=== PATIENT | female | born 1960 | race Caucasian/White ===

== ENCOUNTER → 2017-07-21 | Outpatient (CLI) | payer OTHER ==
[2017-07-21 14:48] VITALS: BP 174/88; PULSE 69; RESP 20; TEMP 98.9; BMI 41.5
--- NOTE | 2017-07-21 15:53 | P.HPOB ---
History of Present Illness H&P Date: 07/21/17 Chief Complaint: Patient is here for her routine gynecologic exam and mammogram. This is a 57-year-old G2 PII within of 2013. The patient states that has been about 3 to 4 years since her last pelvic exam. She is status post tubal ligation. She is without gynecologic complaints and denies any postmenopausal bleeding. Review of Systems She states her weight can fluctuate by about [address] She denies respiratory, cardiac, or G.I. problems. Past Medical History Past Medical History: Asthma, Hypertension Additional Past Medical History / Comment(s): restless leg syndrome History of Any Multi-Drug Resistant Organisms: None Reported Past Surgical History: Orthopedic Surgery (bilateral knee and wrist surgery, shoulder), Tubal Ligation Past Anesthesia/Blood Transfusion Reactions: No Reported Reaction Past Psychological History: No Psychological Hx Reported Smoking Status: Never smoker Past Alcohol Use History: None Reported Past Drug Use History: None Reported Additional History: The patient has been since 2007 and this is her 2nd marriage. She is a embroidery worker. - Past Family History Mother Family Medical History: Cancer (colon) Father Family Medical History: Cancer (Melanoma) Sister(s) Family Medical History: Cancer (Breast) Additional Family Medical History / Comment(s): Another sister had heart disease. Medications and Allergies Home Medications Medication Instructions Recorded Confirmed Type HYDROcodone/APAP 7.5-325MG [[place] 1 tab PO HS 06/11/15 06/11/15 History 7.5-325] Lisinopril-Hctz 20-12.5 mg 1 tab PO DAILY 06/11/15 06/11/15 History [Zestoretic 20-12.5] Cholecalciferol (Vitamin D3) 2,000 unit PO DAILY 07/21/17 07/21/17 History [Vitamin D3] Ibuprofen [Ibuprofen] 1 tab PO TID PRN 07/21/17 07/21/17 History Allergies Allergy/AdvReac Type Severity Reaction Status Date / Time aspirin Allergy Rash/Hives Verified 06/11/15 10:33 Exam - Vital Signs Vital signs: Vital Signs Temp Pulse Resp BP 07/21/17 14:40 98.9 F 69 20 174/88 Intake and Output 07/21/17 07/21/17 07/21/17 06:59 14:59 22:59 Other: Weight 96.615 kg Height 5'0". BMI 41.6. Repeat blood pressure 158/78. This is a well-developed heavyset white female who is alert and oriented times 3 in no acute distress. HEENT: Within normal limits. NECK: Supple without mass or thyromegaly. CHEST AND LUNGS: Clear to auscultation. HEART: Regular rate and rhythm. BREASTS: Are without mass or discharge. AXILLARY EXAM: Negative for adenopathy. BACK: Negative for CVA tenderness. ABDOMEN: Soft, obese, nontender, without palpable masses. PELVIC EXAM: Normal external genitalia with mild atrophy. Cervix and vagina appear normal with mild atrophy. The cervix is somewhat stenotic secondary to atrophy. There is no unusual discharge. There is no evidence of prolapse. The uterus is midposition, nongravid size and nontender. There are no palpable adnexal masses or tenderness. Bimanual examination is somewhat limited secondary to her size. RECTAL EXAM: rectovaginal exam is negative for mass or tenderness and is negative for occult blood. EXTREMITIES: Nontender. IMPRESSION: 1. 57-year-old menopausal female with normal gynecologic exam. 2. Elevated blood pressure with history of hypertension. PLAN: 1. Pap smear was performed. 2. Breast examination was discussed. 3. Screening mammogram will be done today. 4. Osteoporosis prevention was discussed. Bone density screening will be done with the order from Dr. Hedrick. 5. I recommended that she do home blood pressure checks on a regular basis. Should she will follow-up with Dr. Hedrick for elevated blood pressures. 6. She will return in one year.
--- NOTE | 2017-07-22 13:29 | BD ---
EXAMINATION TYPE: MG DEXA axial skeleton. DATE OF EXAM: 07/21/2017 COMPARISON: NONE CLINICAL HISTORY: 57 YR OLD FEMALE: ICD-10 CODE: Z78.0 POST MENOPAUSAL Height: 60 Weight: 208 FRAX RISK QUESTIONS: Alcohol (3 or more units per day): NO Family History (Parent hip fracture): NO Glucocorticoids (More than 3mos): YES (Ex: prednisone, prednisolone, methylprednisolone, dexamethasone, and hydrocortisone). History of Fracture in Adulthood: NO Secondary Osteoporosis: NO 1. Type 1 Diabetes: NO 2. Hyperthyroidism: NO 3. Menopause before 45: NO 4. Malnutrition: NO 5. Chronic liver disease: NO Rheumatoid Arthritis: NO Current Tobacco Use: NO RISK FACTORS HISTORY OF: Active: YES Diet low in dairy products/other sources of calcium: NO Postmenopausal woman: YES AT AGE 52 Hyperparathyroidism: NO Adrenal Insufficiency: NO MEDICATIONS: Prednisone or other steroids: ASTHMA INHALERS STEROIDS FOR ASTHMA How Long: FOR YRS Additional Medications: BP MEDS, SINGULAIR, VIT D Additional History: ASTHMA , EXAM MEASUREMENTS: Bone mineral densitometry was performed using the [employer] System. Bone mineral density as measured about the Lumbar spine is: ----- L1-L4(G/cm2): 1.360 T Score Values are as follows: ----- L1: 1.8 ----- L2: 1.4 ----- L3: 2.3 ----- L4: 0.6 ----- L1-L4: 1.5 Bone mineral density FIRST BONE DENSITY.....BASELINE STUDY Bone mineral density about the R hip (g/cm2): 0.909 Bone mineral density about the L hip (g/cm2): 0.889 T Score values are as follows: -----R Neck: -1.7 -----L Neck: -1.7 -----R Total: -0.8 -----L Total: -0.9 Bone mineral density BASELINE STUDY FRAX%S: THERE IS A 6.2% CHANCE OF A MAJOR OSTEOPOROTIC FX AND A 0.5% FOR HIP FX.....PROBABILITY OF FX IN 10 YRS TIME IMPRESSION: Osteopenia (T Score between -2.5 and -1). There is slightly increased risk of fracture and the patient may be considered for treatment. Re-Screen 2-5 years. NOTE: T-SCORE=SD OF THE YOUNG ADULT MEAN.
--- NOTE | 2017-07-23 08:57 | MM ---
Reason for exam: screening (asymptomatic). Last mammogram was performed 2 years and 1 month ago. History: Patient is postmenopausal. Family history of premenopausal breast cancer in sister and breast cancer in mother. Physical Findings: A clinical breast exam by your physician is recommended on an annual basis and results should be correlated with mammographic findings. MG Screening Mammo w CAD Bilateral CC and MLO view(s) were taken. Prior study comparison: June 06, 2015, bilateral MG screening mammo w CAD. March 30, 2014, bilateral MG screening mammo w CAD. The breast tissue is almost entirely fat. No significant changes when compared with prior studies. ASSESSMENT: Negative, BI-RAD 1 RECOMMENDATION: Routine screening mammogram of both breasts in 1 year.
--- NOTE | 2017-07-28 16:16 | P.PN ---
Progress Note - Text Progress Note Date: 07/28/17 Test results from 07/21/2017 include a negative Pap smear, benign mammogram and a bone density test showing osteopenia. These results were reviewed with the patient over the phone. I have recommended adequate calcium, vitamin D and regular exercise. This was previously discussed with the patient as well. We will plan on repeating the bone density test in 2 to 3 years.
== END | disposition home or self-care (01) ==
LOC: WWCWWP 14:32
PROVIDERS: ATTEND Obstetrics & Gynecology
DX: Z12.31 Encounter for screening mammogram for malignant neoplasm of breast (principal); M85.80 Other specified disorders of bone density and structure, unspecified site; Z78.0 Asymptomatic menopausal state
CPT/HCPCS: 77067; 77080

== ENCOUNTER 2018-08-22 13:33 | Emergency (ER) | payer OTHER ==
[2018-08-22 13:41] VITALS: TEMP 99.9
[2018-08-22] MEDS ORDERED: IPRATROPIUM-ALBUTEROL 3 ML NEB INHALATION STA (14:08)
[2018-08-22] MEDS ORDERED: SODIUM CHLORIDE 0.9% 1,000 ML IV STA (14:08)
--- NOTE | 2018-08-22 14:29 | ED ---
SOB HPI - General Chief Complaint: Shortness of Breath Stated Complaint: Sent from med expressed Time Seen by Provider: 08/22/18 13:46 Source: patient, RN notes reviewed, old records reviewed Mode of arrival: ambulatory Limitations: no limitations - History of Present Illness Initial Comments: 58-year-old female presents emergency department today for evaluation due to cough congestion. She was seen at [facility] and was given a breathing treatment, Tylenol for fever, flu swab which was negative and strep test negative. There is sent over due to an abnormal EKG. They stated the Patient had an enlarged heart and monitored, once. She has no chest pain. She denies lower extremity swelling. Patient has had a history of reactive airway disease. Patient has had no abdominal pain, nausea or vomiting. - Related Data Home Medications Medication Instructions Recorded Confirmed HYDROcodone/APAP 7.5-325MG [[place] 1 tab PO HS 06/11/15 06/11/15 7.5-325] Lisinopril-Hctz 20-12.5 mg 1 tab PO DAILY 06/11/15 06/11/15 [Zestoretic 20-12.5] Cholecalciferol (Vitamin D3) 2,000 unit PO DAILY 07/21/17 07/21/17 [Vitamin D3] Ibuprofen 1 tab PO TID PRN 07/21/17 07/21/17 Previous Rx's Medication Instructions Recorded Azithromycin [Zithromax Z-pack] 250 mg PO DIRECTED #6 tab 08/22/18 Ipratropium-Albuterol Nebulize 3 ml INHALATION QID #30 neb 08/22/18 [Duoneb 0.5 mg-3 mg/3 ml Soln] predniSONE 50 mg PO DAILY #5 tablet 08/22/18 Allergies Allergy/AdvReac Type Severity Reaction Status Date / Time aspirin Allergy Rash/Hives Verified 08/22/18 13:40 Review of Systems ROS Statement: Those systems with pertinent positive or pertinent negative responses have been documented in the HPI. ROS Other: All systems not noted in ROS Statement are negative. Past Medical History Past Medical History: Asthma, Hypertension Additional Past Medical History / Comment(s): restless leg syndrome History of Any Multi-Drug Resistant Organisms: None Reported Past Surgical History: Orthopedic Surgery, Tubal Ligation Additional Past Surgical History / Comment(s): bilateral knee and wrist surgery,shoulder Past Anesthesia/Blood Transfusion Reactions: No Reported Reaction Past Psychological History: No Psychological Hx Reported Smoking Status: Never smoker Past Alcohol Use History: None Reported Past Drug Use History: None Reported - Past Family History Mother Family Medical History: Cancer (colon) Additional Family Medical History / Comment(s): colon Father Family Medical History: Cancer (Melanoma) Additional Family Medical History / Comment(s): melanoma Sister(s) Family Medical History: Cancer (Breast) Additional Family Medical History / Comment(s): Another sister had heart disease. General Exam - General Exam Comments Initial Comments: 58-year-old female. Alert and oriented 3. No significant distress. Limitations: no limitations General appearance: alert, in no apparent distress Head exam: Present: atraumatic, normocephalic, normal inspection Eye exam: Present: normal appearance, PERRL, EOMI. Absent: scleral icterus, conjunctival injection, periorbital swelling ENT exam: Present: normal exam, mucous membranes moist Neck exam: Present: normal inspection Respiratory exam: Present: normal lung sounds bilaterally. Absent: respiratory distress, wheezes, rales, rhonchi, stridor Cardiovascular Exam: Present: regular rate, normal rhythm, normal heart sounds. Absent: systolic murmur, diastolic murmur, rubs, gallop, clicks GI/Abdominal exam: Present: soft, normal bowel sounds. Absent: distended, tenderness, guarding, rebound, rigid Extremities exam: Present: normal inspection, full ROM, normal capillary refill. Absent: tenderness, pedal edema, joint swelling, calf tenderness Back exam: Present: normal inspection Neurological exam: Present: alert, oriented X3, CN II-XII intact Psychiatric exam: Present: normal affect, normal mood Skin exam: Present: warm, dry, intact, normal color. Absent: rash Course Vital Signs 08/22/18 08/22/18 08/22/18 13:37 14:50 14:58 Temperature 99.9 F H Pulse Rate 102 H 100 99 Respiratory 20 Rate Blood Pressure 162/75 O2 Sat by Pulse 97 Oximetry 08/22/18 08/22/18 08/22/18 15:18 15:30 16:00 Temperature Pulse Rate 91 87 92 Respiratory 18 21 22 Rate Blood Pressure 170/80 175/80 158/73 O2 Sat by Pulse 98 96 96 Oximetry Medical Decision Making - Lab Data Result diagrams: 08/22/18 14:45 08/22/18 14:45 Lab Results 08/22/18 08/22/18 08/22/18 Range/Units 14:45 14:45 14:45 WBC 6.1 (3.8-10.6) k/uL RBC 4.35 (3.80-5.40) m/uL Hgb 13.1 (11.4-16.0) gm/dL Hct 39.4 (34.0-46.0) % MCV 90.6 (80.0-100.0) fL MCH 30.2 (25.0-35.0) pg MCHC 33.3 (31.0-37.0) g/dL RDW 14.7 (11.5-15.5) % Plt Count 195 (150-450) k/uL Neutrophils % 89 % Lymphocytes % 7 % Monocytes % 2 % Eosinophils % 1 % Basophils % 0 % Neutrophils # 5.5 (1.3-7.7) k/uL Lymphocytes # 0.4 L (1.0-4.8) k/uL Monocytes # 0.1 (0-1.0) k/uL Eosinophils # 0.1 (0-0.7) k/uL Basophils # 0.0 (0-0.2) k/uL PT (9.0-12.0) sec INR (<1.2) APTT (22.0-30.0) sec Sodium 143 (137-145) mmol/L Potassium 3.9 (3.5-5.1) mmol/L Chloride 108 H (98-107) mmol/L Carbon Dioxide 25 (22-30) mmol/L Anion Gap 10 mmol/L BUN 6 L (7-17) mg/dL Creatinine 0.54 (0.52-1.04) mg/dL Est GFR (CKD-EPI)AfAm >90 (>60 ml/min/1.73 sqM) Est GFR (CKD-EPI)NonAf >90 (>60 ml/min/1.73 sqM) Glucose 123 H (74-99) mg/dL Calcium 9.0 (8.4-10.2) mg/dL Magnesium 2.0 (1.6-2.3) mg/dL Total Bilirubin 0.8 (0.2-1.3) mg/dL AST 27 (14-36) U/L ALT 35 (9-52) U/L Alkaline Phosphatase 80 (38-126) U/L Troponin I (0.000-0.034) ng/mL NT-Pro-B Natriuret Pep 271 pg/mL Total Protein 7.3 (6.3-8.2) g/dL Albumin 4.8 (3.5-5.0) g/dL 08/22/18 08/22/18 Range/Units 14:45 14:45 WBC (3.8-10.6) k/uL RBC (3.80-5.40) m/uL Hgb (11.4-16.0) gm/dL Hct (34.0-46.0) % MCV (80.0-100.0) fL MCH (25.0-35.0) pg MCHC (31.0-37.0) g/dL RDW (11.5-15.5) % Plt Count (150-450) k/uL Neutrophils % % Lymphocytes % % Monocytes % % Eosinophils % % Basophils % % Neutrophils # (1.3-7.7) k/uL Lymphocytes # (1.0-4.8) k/uL Monocytes # (0-1.0) k/uL Eosinophils # (0-0.7) k/uL Basophils # (0-0.2) k/uL PT 9.5 (9.0-12.0) sec INR 0.9 (<1.2) APTT 27.7 (22.0-30.0) sec Sodium (137-145) mmol/L Potassium (3.5-5.1) mmol/L Chloride (98-107) mmol/L Carbon Dioxide (22-30) mmol/L Anion Gap mmol/L BUN (7-17) mg/dL Creatinine (0.52-1.04) mg/dL Est GFR (CKD-EPI)AfAm (>60 ml/min/1.73 sqM) Est GFR (CKD-EPI)NonAf (>60 ml/min/1.73 sqM) Glucose (74-99) mg/dL Calcium (8.4-10.2) mg/dL Magnesium (1.6-2.3) mg/dL Total Bilirubin (0.2-1.3) mg/dL AST (14-36) U/L ALT (9-52) U/L Alkaline Phosphatase (38-126) U/L Troponin I <0.012 (0.000-0.034) ng/mL NT-Pro-B Natriuret Pep pg/mL Total Protein (6.3-8.2) g/dL Albumin (3.5-5.0) g/dL 08/22/18 15:59 EKG shows sinus rhythm left ventricular hypertrophy with repolarization and normality. Abnormal EKG. Ventricular rate is 92 bpm. It was 172 ms. QS duration 92 ms. QT QTC 376/464 ms. - Radiology Data Radiology results: report reviewed Chest x-ray shows myocardial megaly. Heart appears increased compared to old exam. No heart failure seen. Disposition Clinical Impression: CAP (community acquired pneumonia), Cardiomegaly Disposition: HOME SELF-CARE Condition: Good Instructions (If sedation given, give patient instructions): Community Acquired Pneumonia (ED) Additional Instructions: Follow-up with primary care doctor and cardiology. Patient should take antibiotics and prescriptions as prescribed.. Return to the emergency department if any alarming signs or symptoms occur. Rest, remain hydrated. Prescriptions: Ipratropium-Albuterol Nebulize [Duoneb 0.5 mg-3 mg/3 ml Soln] 3 ml INHALATION QID #30 neb predniSONE 50 mg PO DAILY #5 tablet Azithromycin [Zithromax Z-pack] 250 mg PO DIRECTED #6 tab Is patient prescribed a controlled substance at d/c from ED?: No Referrals: Rodríguez Hedrick MD [Primary Care Provider] - 1-2 days Ivan Matthews MD [STAFF PHYSICIAN] - 1-2 days Time of Disposition: 16:14
[2018-08-22 15:07] LABS: Basophils % (A) 0 %; Eosinophils # (A) 0.1 k/uL (0-0.7); Eosinophils % (A) 1 %; HCT 39.4 % (34.0-46.0); HGB 13.1 gm/dL (11.4-16.0); Lymphocytes # (A) 0.4 k/uL (1.0-4.8); Lymphocytes % (A) 7 %; MCH 30.2 pg (25.0-35.0); MCHC 33.3 g/dL (31.0-37.0); MCV 90.6 fL (80.0-100.0); Mean Platelet Volume 7.1; Monocytes # (A) 0.1 k/uL (0-1.0); Monocytes % (A) 2 %; Neutrophils # (A) 5.5 k/uL (1.3-7.7); Neutrophils % (A) 89 %; Platelet Count 195 k/uL (150-450); RBC 4.35 m/uL (3.80-5.40); RDW 14.7 % (11.5-15.5); WBC 6.1 k/uL (3.8-10.6)
[2018-08-22 15:19] LABS: INR 0.9 (<1.2); Partial Thromboplastin Time 27.7 sec (22.0-30.0); Prothrombin Time 9.5 sec (9.0-12.0)
[2018-08-22 15:20] LABS: ALT 35 U/L (9-52); AST 27 U/L (14-36); Albumin 4.8 g/dL (3.5-5.0); Alkaline Phosphatase 80 U/L (38-126); Anion Gap 10 mmol/L; Blood Urea Nitrogen 6 mg/dL (7-17); Carbon Dioxide 25 mmol/L (22-30); Chloride 108 mmol/L (98-107); Glucose 123 mg/dL (74-99); Potassium 3.9 mmol/L (3.5-5.1); Sodium 143 mmol/L (137-145); Total Bilirubin 0.8 mg/dL (0.2-1.3); Total Protein 7.3 g/dL (6.3-8.2)
--- NOTE | 2018-08-22 15:22 | XR ---
EXAMINATION TYPE: XR chest 2V DATE OF EXAM: 08/22/2018 COMPARISON: 02/22/2012 HISTORY: Cough and fever TECHNIQUE: Frontal and lateral views of the chest are obtained. FINDINGS: Heart appears slightly enlarged. Lungs are clear of consolidation. There is no heart failu re. Costophrenic angles are clear. Bony thorax is intact. IMPRESSION: Mild cardiomegaly. Heart appears increased compared to old exam. No heart failure seen.
[2018-08-22 16:02] VITALS: BP 158/73; PULSE 92; RESP 22
== END 2018-08-22 16:49 | disposition home or self-care (01) ==
LOC: EC 13:33
DX: J18.9 Pneumonia, unspecified organism (principal); I11.9 Hypertensive heart disease without heart failure; Z87.09 Personal history of other diseases of the respiratory system; Z79.891 Long term (current) use of opiate analgesic; Z79.899 Other long term (current) drug therapy; Z88.6 Allergy status to analgesic agent
CPT/HCPCS: 36415; 94640; 93005; 83880; 80053; 83735; 84484; 85025; 85610; 85730; 87040; 71046; 99285; 96365; 96361; J0696

== ENCOUNTER → 2019-11-03 | Outpatient (CLI) | payer OTHER ==
--- NOTE | 2019-11-03 13:50 | XR ---
EXAMINATION TYPE: XR elbow complete 3 views RT, XR tibia fibula 2 views RT, XR knee complete 3 views bilateral DATE OF EXAM: 11/03/2019 COMPARISON: NONE HISTORY: 59-year-old female fall yesterday, pain. S50.01XA, S80.01XA, S80.02XA. FINDINGS: Right elbow: No elbow joint effusion. No acute fracture, subluxation, dislocation seen. Right knee: Mild to moderate tricompartmental degenerative spurring. Extensor mechanism is intact. No joint effus ion. No acute fracture, subluxation, dislocation seen. Left knee: Mild to moderate medial and mild lateral compartment degenerative spurring. Some increased density in the Hoffa's fat region. Extensor mechanism appears intact. No significant joint effusion. No acute f racture, subluxation, dislocation. Right tibia/fibula: Some mild reticular density along the lateral posterior aspect of the mid leg. Ankle joint appears gr ossly intact. Moderate-sized plantar calcaneal spur. No acute fracture is seen. IMPRESSION: 1. Right elbow: No acute osseous abnormality seen. 2. Right knee: [id number] degenerative tricompartmental spurring. No acute osseous abnormality seen. 3. Left knee: Mild medial lateral compartment degenerative spurring. There may be some soft tissue br uising in the deep infrapatellar region. No acute osseous abnormality seen. 4. Right tibia/fibula: Some subcutaneous soft tissue swelling along the lateral and posterior aspect of the mid leg. Moderate-sized plantar calcaneal spur. No acute osseous abnormality seen.
== END | disposition home or self-care (01) ==
LOC: RADXRMAIN 13:06
PROVIDERS: ATTEND Emergency Medicine
DX: M76.892 Other specified enthesopathies of left lower limb, excluding foot (principal); M77.32 Calcaneal spur, left foot; M77.31 Calcaneal spur, right foot; M79.89 Other specified soft tissue disorders; S50.01XA Contusion of right elbow, initial encounter

== ENCOUNTER → 2019-11-07 | Outpatient (CLI) | payer OTHER ==
--- NOTE | 2019-11-08 07:56 | XR ---
Right shoulder HISTORY: Pain, trauma one week prior 3 views of the right shoulder Arthropathies present at the acromion clavicular joint. Distal acromion is downturned. Alignment, bon e mineralization are maintained. Right lung apex as visualized are normal. IMPRESSION: No acute fracture or dislocation.
== END | disposition home or self-care (01) ==
LOC: RADXRMAIN 17:29
PROVIDERS: ATTEND Emergency Medicine
DX: M25.511 Pain in right shoulder (principal)

== ENCOUNTER → 2019-11-23 | Outpatient (CLI) | payer OTHER ==
--- NOTE | 2019-11-23 10:52 | XR ---
EXAMINATION TYPE: XR tibia fibula RT DATE OF EXAM: 11/23/2019 CLINICAL HISTORY: History of fall injury November 01 with persistent pain. Contusion and sprain per order . TECHNIQUE: Two views of the right leg are obtained. COMPARISON: Right leg x-ray November 03, 2019.. FINDINGS: There is no new or acute fracture or dislocation seen in the right tibia or fibula. Some d emineralization remains present. Persistent mild to moderate tricompartment joint space loss and visu alized right knee. Persistent mild diffuse subcutaneous edema with interval improvement in lateral so ft tissue swelling. Ankle joint remains within normal limits. IMPRESSION: As above.
== END | disposition home or self-care (01) ==
LOC: RADXRMAIN 10:25
PROVIDERS: ATTEND Emergency Medicine
DX: S80.01XD Contusion of right knee, subsequent encounter (principal); S93.401D Sprain of unspecified ligament of right ankle, subsequent encounter; M79.89 Other specified soft tissue disorders

== ENCOUNTER → 2020-04-11 | Outpatient (CLI) | payer BC ==
--- NOTE | 2020-04-15 12:40 | MR ---
EXAMINATION TYPE: MR knee RT wo con DATE OF EXAM: 04/11/2020 COMPARISON: Plain film 03/20/2020 HISTORY: Right knee pain TECHNIQUE: Multiplanar, multisequence imaging of the right knee is performed without IV contrast. FINDINGS: MEDIAL MENISCUS: Anterior and posterior horns are intact without tear. LATERAL MENISCUS: Anterior and posterior horns are intact without tear. CRUCIATE LIGAMENTS: The anterior and posterior cruciate ligaments are intact and unremarkable. COLLATERAL LIGAMENTS: The medial collateral ligament and lateral collateral ligament complex are inta ct and unremarkable. EXTENSOR MECHANISM: Visualized quadriceps and patellar tendons are intact. EFFUSION: Small joint effusion POPLITEAL CYST: No popliteal/solo cyst. TRICOMPARTMENT SPACES: Joint space loss present at the patellofemoral joint and medial compartment CARTILAGE: Grade IV chondromalacia present at the posterior patella, grade 2 to grade III chondromala braden in the lateral compartment and medial compartment BONE MARROW SIGNAL: Subchondral geode formation present at the posterior patella and anterior distal femur, some reactive marrow signal changes are suspected OTHER: There is some subcutaneous edema change present medially at the level knee joint IMPRESSION: Osteoarthritis, small joint effusion
== END | disposition home or self-care (01) ==
LOC: RADMRIMAIN 16:26
PROVIDERS: ATTEND Orthopaedic Surgery
DX: M17.11 Unilateral primary osteoarthritis, right knee (principal)

== ENCOUNTER 2020-12-09 22:15 | Emergency (ER) | payer BC ==
[2020-12-09 22:41] VITALS: BP 177/80; PULSE 73; RESP 19; TEMP 98.9
--- NOTE | 2020-12-09 23:08 | XR ---
EXAMINATION TYPE: XR knee complete RT DATE OF EXAM: 12/09/2020 COMPARISON: 11/03/2019 HISTORY: Knee pain. Fall onto the concrete. TECHNIQUE: 3 views FINDINGS: I see no fracture nor dislocation. There is minimal spurring of the medial femoral and tibi al condyles. There is spurring at the patellofemoral joint with mild joint space narrowing. There is no sign of joint effusion. IMPRESSION: Mild osteoarthritis. No fracture. No change.
--- NOTE | 2020-12-10 00:47 | ED ---
General Adult HPI - General Chief complaint: Fall Stated complaint: R knee Injury Time Seen by Provider: 12/10/20 00:23 Source: patient, RN notes reviewed Mode of arrival: ambulatory - History of Present Illness Initial comments: Patient is a 60-year-old female that presents to emergency department complaining of right knee pain. She notes she was standing or walking when she got her knee gave out. She notes that she does have a history of surgery on that knee. She notes that she has full range of motion sensation and strength in the knee. She notes that it is just a little bit tender she thinks she hit her knee on a filing cabinet. She denied any other issues or complaints at this time. She denied any chest pain short of breath headache nausea vomiting diarrhea constipation fever fatigue chills. - Related Data Home Medications Medication Instructions Recorded Confirmed HYDROcodone/APAP 7.5-325MG [[place] 1 tab PO HS 06/11/15 06/11/15 7.5-325] Lisinopril-Hctz 20-12.5 mg 1 tab PO DAILY 06/11/15 06/11/15 [Zestoretic 20-12.5] Cholecalciferol (Vitamin D3) 2,000 unit PO DAILY 07/21/17 07/21/17 [Vitamin D3] Ibuprofen 1 tab PO TID PRN 07/21/17 07/21/17 Previous Rx's Medication Instructions Recorded Azithromycin [Zithromax Z-pack (6 250 mg PO DIRECTED #6 tab 08/22/18 tabs)] Ipratropium-Albuterol Nebulize 3 ml INHALATION QID #30 neb 08/22/18 [Duoneb 0.5 mg-3 mg/3 ml Soln] predniSONE 50 mg PO DAILY #5 tablet 08/22/18 Allergies Allergy/AdvReac Type Severity Reaction Status Date / Time aspirin Allergy Rash/Hives Verified 12/09/20 22:41 Review of Systems ROS Statement: Those systems with pertinent positive or pertinent negative responses have been documented in the HPI. ROS Other: All systems not noted in ROS Statement are negative. Past Medical History Past Medical History: Asthma, Hypertension Additional Past Medical History / Comment(s): restless leg syndrome History of Any Multi-Drug Resistant Organisms: None Reported Past Surgical History: Orthopedic Surgery, Tubal Ligation Additional Past Surgical History / Comment(s): bilateral knee and wrist surgery,shoulder Past Anesthesia/Blood Transfusion Reactions: No Reported Reaction Past Psychological History: No Psychological Hx Reported Smoking Status: Never smoker Past Alcohol Use History: None Reported Past Drug Use History: None Reported - Past Family History Mother Family Medical History: Cancer (colon) Additional Family Medical History / Comment(s): colon Father Family Medical History: Cancer (Melanoma) Additional Family Medical History / Comment(s): melanoma Sister(s) Family Medical History: Cancer (Breast) Additional Family Medical History / Comment(s): Another sister had heart disease. General Exam General appearance: alert, in no apparent distress Head exam: Present: atraumatic, normocephalic, normal inspection Eye exam: Present: normal appearance, PERRL, EOMI. Absent: scleral icterus, conjunctival injection, periorbital swelling Neck exam: Present: normal inspection Respiratory exam: Present: normal lung sounds bilaterally. Absent: respiratory distress, wheezes, rales, rhonchi, stridor Cardiovascular Exam: Present: regular rate, normal rhythm, normal heart sounds. Absent: systolic murmur, diastolic murmur, rubs, gallop, clicks Extremities exam: Present: normal inspection, full ROM, normal capillary refill, other (Contusion right knee.). Absent: tenderness, pedal edema, joint swelling, calf tenderness Neurological exam: Present: alert, oriented X3 Psychiatric exam: Present: normal affect, normal mood Skin exam: Present: warm, dry, intact, normal color. Absent: rash Course Vital Signs 12/09/20 22:38 Temperature 98.9 F Pulse Rate 73 Respiratory 19 Rate Blood Pressure 177/80 O2 Sat by Pulse 98 Oximetry Medical Decision Making - Medical Decision Making 60-year-old female complaining of right knee pain. X-rays ordered. X-ray negative for any acute fractures or dislocations. Patient most likely has a knee sprain given symptoms and history. Case discussed with Dr. Dye, patient discharge home with follow-up primary care. - Radiology Data Radiology results: report reviewed, image reviewed X-ray right knee: Mild osteoarthritis. No fracture. No change. Disposition Clinical Impression: Right knee sprain Disposition: HOME SELF-CARE Condition: Stable Instructions (If sedation given, give patient instructions): Fall Prevention for Older Adults (ED) Additional Instructions: Please return to the Emergency Department if symptoms worsen or any other concerns. Follow-up primary care 1-2 days. Rest ice compress elevate. Is patient prescribed a controlled substance at d/c from ED?: No Referrals: Rodríguez Hedrick MD [Primary Care Provider] - 1-2 days Time of Disposition: 00:46
== END 2020-12-10 01:00 | disposition home or self-care (01) ==
LOC: EC 22:15
DX: S83.91XA Sprain of unspecified site of right knee, initial encounter (principal); I10 Essential (primary) hypertension; J45.909 Unspecified asthma, uncomplicated; Z79.899 Other long term (current) drug therapy; Z88.6 Allergy status to analgesic agent; W22.03XA Walked into furniture, initial encounter
CPT/HCPCS: 99283

== ENCOUNTER → 2022-03-07 | Outpatient (CLI) | payer BC | END | disposition home or self-care (01) | LOC: RADMRIMAIN 20:00 | PROVIDERS: ATTEND Orthopaedic Surgery | DX: Z53.9 Procedure and treatment not carried out, unspecified reason (principal) ==

== ENCOUNTER → 2023-06-15 | Outpatient (CLI) | payer BC ==
--- NOTE | 2023-06-16 20:12 | MM ---
Reason for Exam: Screening (asymptomatic). Last screening mammogram was performed 12 month(s) ago. Patient History: Menarche at age 15. First Full-Term at age 28. Postmenopausal. Sister had breast cancer. Risk Values: Mariza 5 year model risk: 2.9%. NCI Lifetime model risk: 13.5%. Prior Study Comparison: 06/06/2015 Bilateral Screening Mammogram, [facility]. 07/21/2017 Bilateral Screening Mammogram, [facility]. 06/13/2022 Bilateral MG screening mammo w CAD, [facility]. Tissue Density: There are scattered fibroglandular densities. Findings: Analyzed By CAD. Central asymmetric density left MLO view at a middle depth has become more defined. This may represent superimposition shadow and further evaluation is recommended. The rest, no significant change. Overall Assessment: Incomplete: need additional imaging evaluation, BI-RAD 0 Management: Special View Mammogram of the left breast. Additional views left breast to include spot 3-D MLO and 3-D laterals views. Targeted left breast ultrasound if any persisting abnormality. [facility] will attempt to contact patient to return for supplemental views and ultrasound if indicated. Electronically signed and approved by: Alek Javed M.D. Radiologist
== END | disposition home or self-care (01) ==
LOC: RADMAMWWP 15:55
PROVIDERS: ATTEND Family Medicine
DX: Z12.31 Encounter for screening mammogram for malignant neoplasm of breast (principal); Z00.00 Encounter for general adult medical examination without abnormal findings; Z78.0 Asymptomatic menopausal state; Z80.3 Family history of malignant neoplasm of breast
CPT/HCPCS: 77067

== ENCOUNTER 2023-08-18 10:48 | Day surgery (SDC) | payer BC ==
[~2023-08-18 10:48] MED LIST: LACTATED RINGERS 1,000 ML IV SCH
[2023-08-18] MEDS: SODIUM CHLORIDE 0.9% 1,000 ML IV ONE (11:25)
[2023-08-18 11:50] VITALS: RESP 18; TEMP 97.8
[2023-08-18] MEDS: BENZOCAINE SPRAY 1 CAN TOPICAL ONE (11:59)
[2023-08-18] MEDS ORDERED: fentaNYL (PF) 50 MCG/ML 2 ML AMP ONE (12:00)
[2023-08-18] MEDS ORDERED: KETAMINE HCL IN 0.9 % NACL 50 MG/5 ML SYRINGE ONE (12:00)
[2023-08-18] MEDS ORDERED: MIDAZOLAM 2 MG/2 ML VIAL ONE (12:00)
--- NOTE | 2023-08-18 12:40 | P.PCN ---
Date of Procedure: 08/18/23 Operative Findings: TRANSESOPHAGEAL ECHOCARDIOGRAM BRAIDER TENDER: KRIS MONTANA MD, RPVI INDICATION: Valvular heart disease SEDATION: Conscious sedation COMPLICATION: None LEVEL OF SEDATION The procedure was performed with RN ACCESS in the room and using deep sedation PROCEDURE DESCRIPTION: After obtaining an informed consent, the patient was brought to transesophageal echocardiogram room. Pulse oximetry and heart monitors were attached to the patient. The patient throat was sprayed using lidocaine. The patient was turned into left lateral position. After that a bite guard was placed. After an appropriate conscious sedation was initiated, the transesophageal echocardiogram was advanced through a bite guard into the mid esophagus. A 2-D echocardiogram images, color Doppler images, continuous wave images, pulse-wave images, of various cardiac structure were performed. After that the transesophageal echocardiogram probe was advanced into the stomach and fixed to obtain transgastric view was. The probe was brought into the mid esophagus. Inter-atrial septum was interrogated using 2D images, color Doppler images, and then contrast study. After that transesophageal echocardiogram was withdrawn out and upon withdrawing the descending thoracic aorta all the way up to the arch was evaluated. CONCLUSION: 1. Trileaflet aortic valve with evidence of severe aortic insufficiency and evidence of holodiastolic flow reversal in the descending aorta. The aortic valve is thickened 2. Normal mitral valve leaflets with moderate mitral regurgitation 3. Normal biventricular dimensions and systolic 4. Intact interatrial septum 5. No evidence of pericardial
[2023-08-18 14:03] VITALS: BP 154/68; PULSE 82
== END 2023-08-18 13:33 | disposition home or self-care (01) ==
LOC: CATHCVL 10:48
PROVIDERS: ATTEND Internal Medicine Interventional Cardiology
DX: I08.0 Rheumatic disorders of both mitral and aortic valves (principal); E66.3 Overweight; Z88.6 Allergy status to analgesic agent; Z91.018 Allergy to other foods; Z79.899 Other long term (current) drug therapy
CPT/HCPCS: 93312; 93320; 93325; 99152; J2250; J3010

== ENCOUNTER → 2023-10-13 | Outpatient (CLI) | payer OTHER ==
--- NOTE | 2023-10-13 14:57 | XR ---
EXAMINATION TYPE: XR ankle complete LT DATE OF EXAM: 10/13/2023 COMPARISON: NONE HISTORY: Pain TECHNIQUE: 3 views of the left ankle are submitted for evaluation. FINDINGS: There is no evidence for fracture or dislocation. Ankle mortise is intact. Soft tissues are within normal limits. IMPRESSION: 1. No evidence for acute fracture.
--- NOTE | 2023-10-13 14:58 | XR ---
EXAMINATION TYPE: XR foot complete LT DATE OF EXAM: 10/13/2023 CLINICAL HISTORY: pain TECHNIQUE: Frontal, lateral and oblique images of the left foot are obtained. COMPARISON: None. FINDINGS: There is no acute fracture/dislocation evident. The joint spaces appear within normal baca its. The overlying soft tissue appears unremarkable. IMPRESSION: There is no acute fracture or dislocation. ICD 10 NO FRACTURE, INITIAL EVALUATION
== END | disposition home or self-care (01) ==
LOC: RADXRMAIN 13:48
PROVIDERS: ATTEND Emergency Medicine
DX: S93.402A Sprain of unspecified ligament of left ankle, initial encounter (principal); S93.602A Unspecified sprain of left foot, initial encounter

== ENCOUNTER → 2023-10-27 | Outpatient (CLI) | payer OTHER ==
--- NOTE | 2023-10-27 17:43 | XR ---
EXAMINATION TYPE: XR ankle complete LT, XR foot complete LT DATE OF EXAM: 10/27/2023 5:17 PM CLINICAL INDICATION:Female, 63 years old with history of S93.402D,S93.602D; [facility] COMPARISON: None TECHNIQUE: XR ankle complete LT, XR foot complete LT; ankle is imaged in frontal, lateral and obliqu e projections. FINDINGS: There is no evidence of acute osseous pathology. No evidence of subluxation or dislocation. Kager's fat pad is intact. Soft tissues are within normal limits. No radiopaque foreign bodies are identified . Calcaneal plantar spurring is present. Incidental note is made of symphalangism of the fifth distal interphalangeal joint. IMPRESSION: 1. No evidence of acute fracture. 2. Subcutaneous swelling around the ankle likely secondary to underlying soft tissue injury.
== END | disposition home or self-care (01) ==
LOC: RADXRMAIN 16:51
PROVIDERS: ATTEND Emergency Medicine
DX: S93.402D Sprain of unspecified ligament of left ankle, subsequent encounter (principal); S93.602D Unspecified sprain of left foot, subsequent encounter; M25.473 Effusion, unspecified ankle

== ENCOUNTER 2023-12-23 18:58 | Emergency (ER) | payer BC ==
[2023-12-23 19:09] VITALS: RESP 18; TEMP 99
--- NOTE | 2023-12-23 20:45 | ED ---
General Adult HPI - General Source: patient, RN notes reviewed Mode of arrival: ambulatory Limitations: no limitations <Amaya Caputo - Last Filed: 12/23/23 20:43> <Yina Zapata - Last Filed: 12/24/23 02:49> - General Chief complaint: Extremity Problem,Nontraumatic Stated complaint: Both Legs Sore Time Seen by Provider: 12/23/23 20:40 - History of Present Illness Initial comments: Quick Note: This is a 63-year-old female who presents to the emergency department for leg pain and shortness of breath. Patient states that she has had pain and soreness in her lower extremities over the last couple of weeks. S tates that these occasionally swell up on her. Additionally, her daughter states that she has a history of a leaky heart valve and has been increasingly short of breath on exertion, very weak, and falling frequently, which is one of her largest concerns. She denies any chest pain. (Amaya Caputo) 63-year-old female presents emergency department from urgent care for concern of bilateral lower extremity pain, edema, and shortness of breath. Patient states that over the past 2 days she has had soreness in her lower extremities. Edema. Additionally she states that she will intermittently experience shortness of breath with ambulation and on exertion. Currently patient is denying chest pain, shortness of breath, difficulty breathing. Patient denies history of DVT, PE, blood clotting disorders, recent surgery, recent prolonged travel. She denies fevers, chills, nausea, vomiting, abdominal pain. Denies history of congestive heart failure use of diuretics. Patient does follow with a rug cleaner and states she has an appointment scheduled on 01/02. (Yina Zapata) - Related Data Home Medications Medication Instructions Recorded Confirmed Ergocalciferol [Vitamin D2 (1250 1,250 mcg PO MO 08/17/23 08/18/23 Mcg = 88709 Iu)] Ibuprofen [Motrin Ib] 200 mg PO Q8H PRN 08/17/23 08/18/23 Ipratropium-Albuterol Nebulize 3 ml INHALATION QID PRN 08/17/23 08/18/23 [Duoneb 0.5 mg-3 mg/3 ml Soln] Previous Rx's Medication Instructions Recorded Cephalexin [Keflex] 500 mg PO Q6HR #20 cap 12/24/23 Furosemide [Lasix] 20 mg PO DAILY 7 Days #7 tab 12/24/23 Allergies Allergy/AdvReac Type Severity Reaction Status Date / Time aspirin Allergy Rash/Hives Verified 12/23/23 19:09 Review of Systems ROS Other: All systems not noted in ROS Statement are negative. <Amaya Caputo - Last Filed: 12/23/23 20:43> ROS Other: All systems not noted in ROS Statement are negative. <Yina Zapata - Last Filed: 12/24/23 02:49> ROS Statement: Those systems with pertinent positive or pertinent negative responses have been documented in the HPI. Past Medical History Past Medical History: Asthma, Hypertension Additional Past Medical History / Comment(s): restless leg syndrome History of Any Multi-Drug Resistant Organisms: None Reported Past Surgical History: Orthopedic Surgery, Tubal Ligation Additional Past Surgical History / Comment(s): bilateral knee and wrist surgery,shoulder Past Anesthesia/Blood Transfusion Reactions: No Reported Reaction Past Psychological History: No Psychological Hx Reported Smoking Status: Never smoker Past Alcohol Use History: None Reported Past Drug Use History: None Reported - Past Family History Mother Family Medical History: Cancer Additional Family Medical History / Comment(s): colon Father Family Medical History: Cancer Additional Family Medical History / Comment(s): melanoma Sister(s) Family Medical History: Cancer Additional Family Medical History / Comment(s): Another sister had heart disease. <Amaya Caputo - Last Filed: 12/23/23 20:43> General Exam Limitations: no limitations <Amaya Caputo - Last Filed: 12/23/23 20:43> General appearance: alert, in no apparent distress Head exam: Present: atraumatic, normocephalic, normal inspection Eye exam: Present: normal appearance, PERRL, EOMI. Absent: scleral icterus, conjunctival injection, periorbital swelling Neck exam: Present: normal inspection. Absent: tenderness, meningismus, lymphadenopathy Respiratory exam: Present: normal lung sounds bilaterally. Absent: respiratory distress, wheezes, rales, rhonchi, stridor Cardiovascular Exam: Present: regular rate, normal rhythm, normal heart sounds. Absent: systolic murmur, diastolic murmur, rubs, gallop, clicks GI/Abdominal exam: Present: soft, normal bowel sounds. Absent: distended, tenderness, guarding, rebound, rigid Extremities exam: Present: other (bilateral lower extremity non-pitting edema, no erythema or palpable masses, negative tony sign) Skin exam: Present: warm, dry, intact, normal color. Absent: rash <Yina Zapata - Last Filed: 12/24/23 02:49> - General Exam Comments Initial Comments: Visual Physical Exam Vital signs reviewed General: Well-appearing, nontoxic, no acute distress. Head: Normocephalic, atraumatic Eyes: PERRLA, EOMI ENT: Airway patent Chest: Nonlabored breathing Skin: No visual rash, normal skin tone Neuro: Alert and oriented 3 Musculoskeletal: No gross abnormalities (Amaya Caputo) Course Vital Signs 12/23/23 12/23/23 12/23/23 19:06 21:40 22:41 Temperature 99.0 F Pulse Rate 79 78 69 Respiratory 18 18 18 Rate Blood Pressure 164/81 154/88 162/78 O2 Sat by Pulse 99 96 97 Oximetry 12/24/23 01:13 Temperature Pulse Rate 68 Respiratory 18 Rate Blood Pressure 162/70 O2 Sat by Pulse 97 Oximetry Medical Decision Making <Amaya Caputo - Last Filed: 12/23/23 20:43> - Lab Data Result diagrams: 12/23/23 21:01 12/23/23 21:01 <Yina Zapata - Last Filed: 12/24/23 02:49> - Medical Decision Making I performed the QuickNote portion of this chart. Signed Amaya Caputo PA-C. (Amaya Caputo) Was pt. sent in by a medical professional or institution (CARLINE Salas, AMBULATORY SERVICE REPRESENTATIVE, urgent care, hospital, or jail...) When possible be specific @ -Patient was sent by urgent care for further evaluation of bilateral leg pain and intermittent diarrhea or dysuria Did you speak to anyone other than the patient for history (EMS, parent, family, police, friend...)? What history was obtained from this source @ -No Did you review nursing and triage notes (agree or disagree)? Why? @ -I reviewed and agree with nursing and triage notes Were old charts reviewed (outside hosp., previous admission, EMS record, old EKG, old radiological studies, urgent care reports/EKG's, jail records)? Report findings @ -No old charts were reviewed Differential Diagnosis (chest pain, altered mental status, abdominal pain women, abdominal pain men, vaginal bleeding, weakness, fever, dyspnea, syncope, headache, dizziness, GI bleed, back pain, seizure, CVA, palpatations, mental health, musculoskeletal)? @ -Differential Dyspnea: Coronary syndrome, arrhythmia, tamponade, asthma, COPD, pulmonary embolism, pneumonia, pneumothorax, pulmonary effusion, anaphylaxis, diabetic ketoacidosis, flailed chest, pulmonary contusion, diaphragmatic rupture, anemia, neuromuscular, this is not meant to be an all-inclusive list. EKG interpreted by me (3pts min.). @ -Completed at 2101, sinus rhythm with a ventricular rate of 81, HI interval 186, QTc 406. No acute signs of ischemia. X-rays interpreted by me (1pt min.). @ -chest x-ray with mild cardiomegaly suspected mild central congestive changes. CT interpreted by me (1pt min.). @ -None done U/S interpreted by me (1pt. min.). @ -Duplex ultrasound of bilateral lower extremities negative for DVT What testing was considered but not performed or refused? (CT, X-rays, U/S, labs)? Why? @ -None What meds were considered but not given or refused? Why? @ -None Did you discuss the management of the patient with other professionals (professionals i.e. , PA, AMBULATORY SERVICE REPRESENTATIVE, lab, RT, psych nurse, director of social services, bread packer, teacher, retirement officer, counter caser)? Give summary @ -No Was smoking cessation discussed for >3mins.? @ -No Was critical care preformed (if so, how long)? @ -No Were there social determinants of health that impacted care today? How? (Homelessness, low income, unemployed, alcoholism, drug addiction, transportation, low edu. Level, literacy, decrease access to med. care, detention, rehab)? @ -No Was there de-escalation of care discussed even if they declined (Discuss DNR or withdrawal of care, Hospice)? DNR status @ -No What co-morbidities impacted this encounter? (DM, HTN, Smoking, COPD, CAD, Cancer, CVA, ARF, Chemo, Hep., AIDS, mental health diagnosis, sleep apnea, morbid obesity)? @ -None Was patient admitted / discharged? Hospital course, mention meds given and route, prescriptions, significant lab abnormalities, going to OR and other pe rtinent info. @ -Discharge. 63-year-old female with lower extremity pain. Patient was originally evaluated as a quick note where labs were addition to chest x-ray. On my evaluation patient is resting comfortably on room air no signs of acute distress. Vitals are stable. Patient does have bilateral lower extremity nonpitting edema. Chest x-ray is concerning for mild cardiomegaly with mild central congestive changes. CBC , CMP, coagulation profile unremarkable, BNP 606 nonelevated. Troponin nonelevated at less than 0.012. Urinalysis remarkable for infection including positive nitrates, large leukocyte Estrace, and the 167 white blood cells. With patient's presentation of edema and mild vascular pulmonary congestion patient will be discharged home with course of p.o. steroid for diuretic. Discussed with patient option of staying in the emergency depar tment for cardiogram and cardiology consultation, patient declines and states that she has appointment scheduled with her rug cleaner next week and feels comfortable following up with her primary care provider as well. Recommend that patient receives repeat blood work after course of Lasix is completed as this has a tendency to repeat electrolytes. additionally patient is provided with a dose of Rocephin in the emergency department and sent a prescription for Keflex for urinary tract infection. All questions answered at bedside and strict return parameters discussed with the patient and she is verbalized understanding. Case discussed with Dr. Dye Undiagnosed new problem with uncertain prognosis? @ -No Drug Therapy requiring intensive monitoring for toxicity (Heparin, Nitro, Insulin, Cardizem)? @ -No Were any procedures done? @ -No Diagnosis/symptom? @ -Bilateral lower extremity edema, pulmonary vascular congestion, venous insufficiency Acute, or Chronic, or Acute on Chronic? @ -Acute Uncomplicated (without systemic symptoms) or Complicated (systemic symptoms)? @ -Uncomplicated Side effects of treatment? @ -No Exacerbation, Progression, or Severe Exacerbation? @ -No Poses a threat to life or bodily function? How? (Chest pain, [place], [place], pneumonia, PE, COPD, DKA, ARF, appy, cholecystitis, CVA, Diverticulitis, Homicidal, Suicidal, threat to staff... and all critical care pts) @ -No (BennyYina) - Lab Data Lab Results 12/23/23 12/23/23 12/23/23 Range/Units 21:01 21:01 21:01 WBC 9.3 (3.8-10.6) k/uL RBC 3.94 (3.80-5.40) m/uL Hgb 12.0 (11.4-16.0) gm/dL Hct 35.6 (34.0-46.0) % MCV 90.3 (80.0-100.0) fL MCH 30.4 (25.0-35.0) pg MCHC 33.7 (31.0-37.0) g/dL RDW 14.3 (11.5-15.5) % Plt Count 275 (150-450) k/uL MPV 7.2 Neutrophils % 64 % Lymphocytes % 23 % Monocytes % 5 % Eosinophils % 6 % Basophils % 1 % Neutrophils # 5.9 (1.3-7.7) k/uL Lymphocytes # 2.1 (1.0-4.8) k/uL Monocytes # 0.5 (0-1.0) k/uL Eosinophils # 0.6 (0-0.7) k/uL Basophils # 0.1 (0-0.2) k/uL PT 10.1 (10.0-12.5) sec INR 0.9 (<1.2) APTT 26.1 (22.0-30.0) sec Sodium 141 (137-145) mmol/L Potassium 3.9 (3.5-5.1) mmol/L Chloride 110 H (98-107) mmol/L Carbon Dioxide 24 (22-30) mmol/L Anion Gap 7 mmol/L BUN 11 (7-17) mg/dL Creatinine 0.67 (0.52-1.04) mg/dL Est GFR (CKD-EPI)AfAm >90 (>60 ml/min/1.73 sqM) Est GFR (CKD-EPI)NonAf >90 (>60 ml/min/1.73 sqM) Glucose 97 (74-99) mg/dL Plasma Lactic Acid Devon (0.7-2.0) mmol/L Calcium 9.5 (8.4-10.2) mg/dL Magnesium 1.9 (1.6-2.3) mg/dL Total Bilirubin 0.8 (0.2-1.3) mg/dL AST 28 (14-36) U/L ALT 15 (4-34) U/L Alkaline Phosphatase 76 (38-126) U/L Troponin I (0.000-0.034) ng/mL NT-Pro-B Natriuret Pep 606 pg/mL Total Protein 6.8 (6.3-8.2) g/dL Albumin 4.7 (3.5-5.0) g/dL Urine Color Urine Appearance (Clear) Urine pH (5.0-8.0) Ur Specific [place] (1.001-1.035) Urine Protein (Negative) Urine Glucose (UA) (Negative) Urine Ketones (Negative) Urine Blood (Negative) Urine Nitrite (Negative) Urine Bilirubin (Negative) Urine Urobilinogen (<2.0) mg/dL Ur Leukocyte Esterase (Negative) Urine RBC (0-5) /hpf Urine WBC (0-5) /hpf Urine WBC Clumps (None) /hpf Ur Squamous Epith Cells (0-4) /hpf Urine Bacteria (None) /hpf Urine Yeast (Budding) (None) /hpf 12/23/23 12/23/23 12/23/23 Range/Units 21:01 21:01 21:53 WBC (3.8-10.6) k/uL RBC (3.80-5.40) m/uL Hgb (11.4-16.0) gm/dL Hct (34.0-46.0) % MCV (80.0-100.0) fL MCH (25.0-35.0) pg MCHC (31.0-37.0) g/dL RDW (11.5-15.5) % Plt Count (150-450) k/uL MPV Neutrophils % % Lymphocytes % % Monocytes % % Eosinophils % % Basophils % % Neutrophils # (1.3-7.7) k/uL Lymphocytes # (1.0-4.8) k/uL Monocytes # (0-1.0) k/uL Eosinophils # (0-0.7) k/uL Basophils # (0-0.2) k/uL PT (10.0-12.5) sec INR (<1.2) APTT (22.0-30.0) sec Sodium (137-145) mmol/L Potassium (3.5-5.1) mmol/L Chloride (98-107) mmol/L Carbon Dioxide (22-30) mmol/L Anion Gap mmol/L BUN (7-17) mg/dL Creatinine (0.52-1.04) mg/dL Est GFR (CKD-EPI)AfAm (>60 ml/min/1.73 sqM) Est GFR (CKD-EPI)NonAf (>60 ml/min/1.73 sqM) Glucose (74-99) mg/dL Plasma Lactic Acid Devon 1.3 (0.7-2.0) mmol/L Calcium (8.4-10.2) mg/dL Magnesium (1.6-2.3) mg/dL Total Bilirubin (0.2-1.3) mg/dL AST (14-36) U/L ALT (4-34) U/L Alkaline Phosphatase (38-126) U/L Troponin I <0.012 (0.000-0.034) ng/mL NT-Pro-B Natriuret Pep pg/mL Total Protein (6.3-8.2) g/dL Albumin (3.5-5.0) g/dL Urine Color Colorless Urine Appearance Cloudy H (Clear) Urine pH 5.5 (5.0-8.0) Ur Specific [place] 1.005 (1.001-1.035) Urine Protein Negative (Negative) Urine Glucose (UA) Negative (Negative) Urine Ketones Negative (Negative) Urine Blood Negative (Negative) Urine Nitrite Positive H (Negative) Urine Bilirubin Negative (Negative) Urine Urobilinogen <2.0 (<2.0) mg/dL Ur Leukocyte Esterase Large H (Negative) Urine RBC 5 (0-5) /hpf Urine WBC 167 H (0-5) /hpf Urine WBC Clumps Occasional H (None) /hpf Ur Squamous Epith Cells 2 (0-4) /hpf Urine Bacteria Moderate H (None) /hpf Urine Yeast (Budding) Rare H (None) /hpf Disposition <Amaya Caputo - Last Filed: 12/23/23 20:43> Is patient prescribed a controlled substance at d/c from ED?: No Time of Disposition: 00:44 <Yina Zapata - Last Filed: 12/24/23 02:49> Clinical Impression: Venous insufficiency (chronic) (peripheral), Pulmonary vascular congestion, UTI (urinary tract infection) Disposition: HOME SELF-CARE Condition: Good Instructions (If sedation given, give patient instructions): Leg Edema (ED) Additional Instructions: Return to the emergency department for any new or worsening symptoms. Complete full course of Lasix and antibiotics as prescribed. Recommend a follow-up with your primary care provider next week for further evaluation and repeat blood jett w to ensure electrolyte balance. Keep scheduled appoint with rug cleaner on the of this month for further evaluation. Prescriptions: Cephalexin [Keflex] 500 mg PO Q6HR #20 cap Furosemide [Lasix] 20 mg PO DAILY 7 Days #7 tab Referrals: Rodríguez Hedrick [Primary Care Provider] - 1-2 days
[2023-12-23 21:32] LABS: ALT 15 U/L (4-34); AST 28 U/L (14-36); African American GFR (CKD) >90 (>60 ml/min/1.73 sqM); Albumin 4.7 g/dL (3.5-5.0); Alkaline Phosphatase 76 U/L (38-126); Anion Gap 7 mmol/L; Blood Urea Nitrogen 11 mg/dL (7-17); Calcium 9.5 mg/dL (8.4-10.2); Carbon Dioxide 24 mmol/L (22-30); Chloride 110 mmol/L (98-107); Glucose 97 mg/dL (74-99); Magnesium 1.9 mg/dL (1.6-2.3); Non-African American GFR(CKD) >90 (>60 ml/min/1.73 sqM); Potassium 3.9 mmol/L (3.5-5.1); Sodium 141 mmol/L (137-145); Total Bilirubin 0.8 mg/dL (0.2-1.3); Total Protein 6.8 g/dL (6.3-8.2)
[2023-12-23 21:33] LABS: INR 0.9 (<1.2); Partial Thromboplastin Time 26.1 sec (22.0-30.0); Prothrombin Time 10.1 sec (10.0-12.5)
[2023-12-23 21:41] LABS: NT-Pro-B-Type Natriuretic Pept 606 pg/mL
[2023-12-23 21:43] LABS: Basophils # (A) 0.1 k/uL (0-0.2); Basophils % (A) 1 %; Eosinophils # (A) 0.6 k/uL (0-0.7); Eosinophils % (A) 6 %; HCT 35.6 % (34.0-46.0); Lymphocytes # (A) 2.1 k/uL (1.0-4.8); Lymphocytes % (A) 23 %; MCH 30.4 pg (25.0-35.0); MCHC 33.7 g/dL (31.0-37.0); MCV 90.3 fL (80.0-100.0); Mean Platelet Volume 7.2; Monocytes # (A) 0.5 k/uL (0-1.0); Monocytes % (A) 5 %; Neutrophils # (A) 5.9 k/uL (1.3-7.7); Neutrophils % (A) 64 %; Platelet Count 275 k/uL (150-450); RBC 3.94 m/uL (3.80-5.40); RDW 14.3 % (11.5-15.5); WBC 9.3 k/uL (3.8-10.6)
[2023-12-23 22:22] LABS: Appearance,Urine Cloudy (Clear); Bacteria,Urine Moderate /hpf; Bilirubin,Urine Negative (Negative); Blood,Urine Negative (Negative); Budding Yeast,Urine Rare /hpf; Color,Urine Colorless; Glucose,Urine (UA) Negative (Negative); Ketones,Urine Negative (Negative); Leukocyte Esterase,Urine Large (Negative); Nitrite,Urine Positive (Negative); PH, Urine 5.5 (5.0-8.0); Protein,Urine Negative (Negative); RBC,Urine 5 /hpf (0-5); Specific Gravity,Urine 1.005 (1.001-1.035); Squamous Epithelial Cell,Urine 2 /hpf (0-4); Urobilinogen,Urine <2.0 mg/dL (<2.0); WBC,Urine 167 /hpf (0-5)
--- NOTE | 2023-12-23 23:04 | XR ---
EXAMINATION TYPE: XR chest 2V DATE OF EXAM: 12/23/2023 8:56 PM CLINICAL INDICATION:Female, 63 years old with history of difficulty breathing; [facility] COMPARISON: None TECHNIQUE: XR chest 2V. Frontal and lateral views of the chest.. FINDINGS: Lines/Tubes/Devices: No indwelling lines are seen. Heart/mediastinum: Heart appears mildly enlarged. Mediastinum appears normal. Pulmonary vascularity: Mild central congestive changes suggested. Lungs/Pleura: There is no evidence of pleural effusion, focal consolidation, or pneumothorax. Musculoskeletal: No acute osseous abnormality demonstrated in the limits of the exam. Mild degenerat peggy changes of the spine and shoulders. Other findings: None. IMPRESSION: Mild cardiomegaly with suspected mild central congestive changes.
--- NOTE | 2023-12-24 00:18 | US ---
EXAM: US Duplex Bilateral Lower Extremities Veins CLINICAL HISTORY: ITS.REASON US Reason: Leg pain TECHNIQUE: Real-time duplex ultrasound scan of the bilateral lower extremity veins integrating B-mode two-dimensional vascular structure, Doppler spectral analysis, color flow Doppler imaging and compression. COMPARISON: No relevant prior studies available. FINDINGS: Right deep veins: Unremarkable. The visualized deep veins of the right lower extremity are compressible with color flow. No visualized thrombus. Right superficial veins: Unremarkable. Left deep veins: Unremarkable. The visualized deep veins of the left lower extremity are compressible with color flow. No visualized thrombus. Left superficial veins: Unremarkable. Soft tissues: No acute findings. IMPRESSION: No DVT within the bilateral lower extremities.
[2023-12-24 01:13] VITALS: BP 162/70
[2023-12-24] MEDS: cefTRIAXone IN SWFI 1,000 MG/10 ML SYRINGE IVP STA (01:16)
[2023-12-24 02:49] VITALS: PULSE 63
== END 2023-12-24 03:34 | disposition home or self-care (01) ==
LOC: EC 18:58
CPT/HCPCS: 36415; 71046; 80053; 81001; 83605; 83735; 83880; 84484; 85025; 85610; 85730; 93005; 93970; 96374; 99284

== ENCOUNTER → 2024-05-02 | Outpatient (CLI) | payer BC ==
[2024-05-03 03:35] LABS: Blood Urea Nitrogen 12.1 mg/dL (9.0-27.0); Carbon Dioxide 24.3 mmol/L (21.6-31.8); Chloride 104 mmol/L (96-109); Potassium 4.3 mmol/L (3.5-5.5); Sodium 142 mmol/L (135-145)
[2024-05-03 05:11] LABS: HCT 40.9 % (37.2-46.3); HGB 13.3 g/dL (12.0-15.0); MCH 30.2 pg (27.0-32.0); MCHC 32.5 g/dL (32.0-37.0); MCV 92.7 FL (80.0-97.0); Mean Platelet Volume 10.3 FL (9.5-12.2); NRBC Per 100 WBC 0 X 10*3/uL (0.00-0.01); Platelet Count 340 X 10*3/uL (140-440); RBC 4.41 X 10*6/uL (4.10-5.20); RDW 13.5 % (11.5-14.5); WBC 9.31 X 10*3/uL (4.50-10.00)
== END | disposition home or self-care (01) ==
LOC: LABPAT 16:13
PROVIDERS: ATTEND Internal Medicine Interventional Cardiology
DX: Z01.812 Encounter for preprocedural laboratory examination (principal); I38 Endocarditis, valve unspecified
CPT/HCPCS: 80051; 82565; 84520; 85027

== ENCOUNTER → 2024-05-05 | Day surgery (SDC) | payer BC ==
[2024-04-29 15:46] VITALS: BMI 41.3
[~2024-05-05] MED LIST changes: +ALPRAZolam 0.5 MG TAB PO PRN; +ATORVASTATIN 80 MG TAB PO ONE; +BENZOCAINE SPRAY 1 CAN TOPICAL PRN; +EMPTY BAG 1 BAG with SODIUM CHLORIDE 0.9% 1,000 ML IV ONE; -LACTATED RINGERS 1,000 ML IV SCH; +NITROGLYCERIN SL TABS 0.4 MG TAB SUBLINGUAL PRN; +RX INFO: IV CONTRAST WAS GIVEN 1 EACH MISC MISCELLANE PRN; +SODIUM CHLORIDE 0.9% 1,000 ML IV SCH
[2024-05-05] MEDS: ALPRAZolam 0.25 MG TAB PO PRN (06:32)
[2024-05-05] MEDS: ASPIRIN 325 MG TAB PO ONE (06:47)
[2024-05-05 06:52] VITALS: TEMP 99.4
[2024-05-05] MEDS: HEPARIN SODIUM,PORCINE 10,000 UNIT in SODIUM CHLORIDE 0.9% 1,000 ML IRRIGATION PRN (07:10)
[2024-05-05] MEDS: IV FLUID CONTINUATION 1,000 ML IV ONE ×2 (07:11→08:32)
[2024-05-05] MEDS: HEPARIN SODIUM,PORCINE (1 ML) 2,500 UNIT in SODIUM CHLORIDE 0.9% 250 ML IRRIGATION PRN (07:11)
[2024-05-05] MEDS: MIDAZOLAM 2 MG/2 ML VIAL IVP ONE ×2 (07:46→07:54)
[2024-05-05] MEDS: fentaNYL (PF) 50 MCG/1 ML VIAL IVP ONE (07:46)
[2024-05-05] MEDS: LIDOCAINE 1% INJ 10MG/ML (20 ML MDV) SQ ONE (07:48)
[2024-05-05] MEDS: VERAPAMIL SYRINGE (5 MG/10 ML) INTRAARTER ONE (07:50)
[2024-05-05] MEDS: HEPARIN SODIUM 1,000 UN/ML (10ML VL) IVP ONE (07:54)
[2024-05-05] MEDS: fentaNYL (PF) 50 MCG/ML 5 ML AMP IVP PRN (08:01)
[2024-05-05] MEDS: NITROGLYCERIN SL TABS 0.4 MG TAB SUBLINGUAL ONE (08:02)
[2024-05-05] MEDS: ENALAPRILAT 1.25 MG/ML 1 ML VIAL IVP ONE (08:03)
[2024-05-05] MEDS: MIDAZOLAM 2 MG/2 ML VIAL IV PRN (08:15)
[2024-05-05] MEDS: IOPAMIDOL-370 100ML BTL INJ ONE ×2 (08:16→08:19)
--- NOTE | 2024-05-05 08:23 | P.PCN ---
Date of Procedure: 05/05/24 Operative Findings: CARDIAC CATHETERIZATION PERFORMING PHYSICIAN: Ivan Matthews MD, RPVI PROCEDURE PERFORMED: 1. Selective right and left coronary angiogram 2. Left heart catheterization and right heart catheterization as well as aortic root angiogram 3. Ultrasound-guided access of the right radial artery INDICATION: Shortness of breath in this 63-year-old female patient who is known to have severe aortic insufficiency COMPLICATION: None APPROACH: Right radial artery LEVEL OF SEDATION: Moderate with a sedation length of 30 minutes PROCEDURE DESCRIPTION: After obtaining an informed consent, the patient was brought to cardiac experimental machining lab manager. Local anesthesia was performed using lidocaine subcutaneously. The right radial artery was cannulated using Seldinger technique, the guidewire passed easily, following that we advanced a 5-[place] sheath dilator assembly, the wire and dilator were removed and sheath was flushed. Following that, 2 mg of verapamil along with 5000 unit heparin were given. Selective right and left coronary angiogram using a 6-[place] JR4 and JL 3.5 catheters. Following that we did left heart catheterization using 6-[place] pigtail catheter. Right heart catheterization was performed using 6 [place] catheter from right common femoral vein approach The procedure was completed there was no complication. SELECTIVE CORONARY ANGIOGRAM: The right coronary artery: Medium caliber vessel with no evidence of high-grade stenosis Left main: Is angiographically normal The left circumflex: Large caliber vessel nondominant vessel with no evidence of high-grade stenosis The left anterior descending artery: Large-caliber vessel appears to be angiographically normal and gives rise into a large diagonal branch which seems to be normal HEMODYNAMICS: The LVEDP was 14 mmHg Pulmonary capillary wedge pressure was 6 mmHg PA pressure were as follows systolic of 29 and diastolic of 9 and mean of 17 mmHg RV pressures were as follows systolic of 33 and end-diastolic of 5 mmHg RA pressure was 2 mmHg Aortic root angiogram The aortic root angiogram was performed in the BULGARIAN and KELLY projection. It showed about 3+ aortic insufficiency CONCLUSION: 1. Normal coronary angiogram 2. Normal biventricular filling pressure 3. Normal pulmonary artery systolic pressure 4. 3+ aortic insufficiency POSTPROCEDURE MANAGEMENT: Follow-up with the patient in the office.
[2024-05-05 17:14] VITALS: RESP 16
[2024-05-05 17:28] VITALS: BP 136/61; PULSE 65
== END ==
LOC: CATHCVL 05:46
PROVIDERS: ATTEND Internal Medicine Interventional Cardiology
DX: I35.1 Nonrheumatic aortic (valve) insufficiency (principal); E66.3 Overweight; Z68.41 Body mass index [BMI] 40.0-44.9, adult; Z82.49 Family history of ischemic heart disease and other diseases of the circulatory system; Z88.8 Allergy status to other drugs, medicaments and biological substances; Z88.6 Allergy status to analgesic agent; Z79.899 Other long term (current) drug therapy
CPT/HCPCS: 93460; 93567; C1769 ×3; C1894 ×2; C1751; C1760; J2250; J1644 ×3; J2003; J3010 ×2; Q9967